=== PATIENT | female | born 1990 | race Caucasian/White ===

== ENCOUNTER 2018-10-30 05:26 | Emergency (ER) | payer OTHER ==
[2018-10-30 05:47] VITALS: BMI 25.2
[2018-10-30] MEDS ORDERED: SODIUM CHLORIDE 0.9% 500 ML INFUS.BAG IV ONE (06:03)
[2018-10-30] MEDS ORDERED: ACETAMINOPHEN 1000 MG/100 ML VIAL (NON FORMULARY) IVPB ONE (06:03)
--- NOTE | 2018-10-30 06:09 | PDOC ---
Attending Attestation - Resident Resident Name: Corbin Arceo - ED Attending Attestation I have performed the following: I have examined & evaluated the patient, The case was reviewed & discussed with the resident, I agree w/resident's findings & plan - HPI HPI: 10/30/18 06:07 Pt comes with RUQ pain and she has 2 large stones in her GB on bedside sono. We are not appreciating thick GB wall and she will be sent for an official sono to measure CBD and check out the pancreas, as she has epigastric pain. - Physicial Exam PE: 10/30/18 06:08 Agree with resident exam. - Medical Decision Making 10/30/18 06:08 Pt will have preop labs drawn and she will be hydrated and given tylenol IVPB. 10/30/18 06:46 Lipase is normal. 10/30/18 06:59 INR normal CBC and chem pending official sono pedning. Pt will be signed out to the day ER team.
--- NOTE | 2018-10-30 06:19 | PDOC ---
History of Present Illness - General Chief Complaint: Pain Stated Complaint: ABD PAIN Time Seen by Provider: 10/30/18 05:46 History Source: Patient Exam Limitations: No Limitations - History of Present Illness Initial Comments: 10/30/18 06:13 Thelma Goel is a 28F presenting with acute onset epigastric abdominal pain. Says she woke up today with a sharp epigastric pain, non-radiating, without fever, N/V, C/D, dizziness, weakness, chest pain, SOB. Says she ate some platanos and chicken, partner also ate and is not affected. Never had this pain before, denies any abdominal surgeries, takes OCP and denies , denies cardiac history. Denies tobacco, alcohol, drug use. Otherwise healthy, no home medications other than OCP. NKDA. Past History - Past Medical History Allergies/Adverse Reactions: Allergies Allergy/AdvReac Type Severity Reaction Status Date / Time No Known Allergies Allergy Verified 10/30/18 05:47 Home Medications: Ambulatory Orders NK [No Known Home Medication] 10/30/18 COPD: No - Suicide/Smoking/Psychosocial Hx Smoking History: Never smoked Have you smoked in the past 12 months: No Information on smoking cessation initiated: No Hx Alcohol Use: No Drug/Substance Use Hx: No Review of Systems - Review of Systems Able to Perform ROS?: Yes Is the patient limited [place] proficient: No Constitutional: No: Symptoms Reported HEENTM: No: Symptoms Reported Respiratory: No: Symptoms reported Cardiac (ROS): No: Symptoms Reported ABD/GI: Yes: Other (sharp abdominal pain). No: Constipated, Diarrhea, Nausea, Poor Appetite, Poor Fluid Intake, Vomiting : No: Symptoms Reported Musculoskeletal: No: Symptoms Reported Integumentary: No: Symptoms Reported Neurological: No: Symptoms reported Endocrine: No: Symptoms Reported Hematologic/Lymphatic: No: Symptoms Reported All Other Systems: Reviewed and Negative *Physical Exam - Vital Signs Last Vital Signs Temp Pulse Resp BP Pulse Ox 97.9 F 100 H 22 H 128/78 100 10/30/18 05:42 10/30/18 05:42 10/30/18 05:42 10/30/18 05:42 10/30/18 05:42 - Physical Exam General Appearance: Yes: Nourished, Appropriately Dressed, Mild Distress HEENT: positive: EOMI, GREG[place], Normal Voice, Symmetrical, Pharynx Normal. negative: Scleral Icterus (R), Scleral Icterus (L) Neck: positive: Trachea midline, Normal Thyroid, Supple. negative: Tender, Lymphadenopathy (R), Lymphadenopathy (L) Respiratory/Chest: positive: Lungs Clear, Normal Breath Sounds, Respiratory Distress. negative: Crackles, Rales, Rhonchi Cardiovascular: positive: Regular Rhythm, Regular Rate. negative: Murmur Gastrointestinal/Abdominal: positive: Normal Bowel Sounds, Tender (epigastric), Flat, Soft. negative: Organomegaly Musculoskeletal: positive: Normal Inspection. negative: CVA Tenderness Extremity: positive: Normal Capillary Refill, Normal Inspection, Normal Range of Motion. negative: Tender Integumentary: positive: Normal Color, Dry, Warm. negative: Cold Neurologic: positive: Fully Oriented, Normal Mood/Affect, Normal Response ED Treatment Course - LABORATORY CBC & Chemistry Diagram: 10/30/18 06:00 10/30/18 06:00 Medical Decision Making - Medical Decision Making 10/30/18 06:13 Thelma Goel is a 28F presenting with acute onset epigastric abdominal pain. Patient presents with cute onset first time epigastric pain with no prior history. Presentation concerning for pancreatitis vs. gallbladder pathology vs. appendicitis vs. NM vs. AAA vs. gastritis. Will evaluate via: CMP CBC ECG CXR Lipase Upreg Coags RUQ US Bedside US shows no enlarged ant. gallblader wall or CBD dilation, but several non-obstructing stones noted in GB. Giving 1L NS and Ofirmev for pain. Will need surgery consult and will likely be discharged with biliac colic and f/ u with a surgeon. 10/30/18 07:43 Patient re-assessed, pain is under control. Signed out to Dr. Holland. *DC/Admit/Observation/Transfer Diagnosis at time of Disposition: Epigastric pain - Referrals Referrals: Arsenio Jin MD [Primary Care Provider] - - Patient Instructions - Post Discharge Activity
[2018-10-30 06:32] LABS: MEAN CELL VOLUME 87.9 fl (80-96)
[2018-10-30 06:54] LABS: INR 0.97 (0.83-1.09); PROTHROMBIN TIME (PATIENT) 11.5 SEC (9.7-13.0)
[2018-10-30 06:57] LABS: HEMOGLOBIN 14.8 GM/dL (10.7-15.3); MCH 30.2 pg (25.7-33.7); MCHC 34.4 g/dl (32.0-36.0); RBC 4.89 M/mm3 (3.60-5.2); RDW 13.4 % (11.6-15.6)
[2018-10-30 06:59] LABS: ALBUMIN 4.2 g/dl (3.4-5.0); BILIRUBIN,TOTAL 0.5 mg/dL (0.2-1); BLOOD UREA NITROGEN 11.2 mg/dL (7-18); CALCIUM 9.4 mg/dL (8.5-10.1); CREATININE 0.9 mg/dL (0.55-1.3); POTASSIUM 3.7 mmol/L (3.5-5.1); TOT PROT 8.7 g/dl (6.4-8.2)
[2018-10-30 08:02] LABS: ANISOCYTOSIS 0; MACROCYTOSIS 0
[2018-10-30 08:03] LABS: PLATELET ESTIMATE NO CLOTTING DETECTED
--- NOTE | 2018-10-30 08:15 | PDOC ---
*Physical Exam - Vital Signs Last Vital Signs Temp Pulse Resp BP Pulse Ox 97.9 F 92 H 18 100/64 100 10/30/18 05:42 10/30/18 07:12 10/30/18 07:12 10/30/18 07:12 10/30/18 07:12 - Physical Exam General Appearance: Yes: Nourished, Appropriately Dressed HEENT: positive: EOMI, Symmetrical. negative: Nasal Congestion, Rhinorrhea Neck: positive: Supple. negative: Lymphadenopathy (R), Lymphadenopathy (L) Respiratory/Chest: positive: Lungs Clear, Normal Breath Sounds. negative: Accessory Muscle Use Cardiovascular: positive: Regular Rhythm, Regular Rate, S1, S2 Gastrointestinal/Abdominal: positive: Normal Bowel Sounds, Soft, Tenderness ( mild epigastric tenderness to palpation ). negative: Guarding, Rebound Extremity: positive: Normal Capillary Refill Integumentary: positive: Normal Color Neurologic: positive: Fully Oriented, Alert, Motor Strength 5/5 ED Treatment Course - LABORATORY CBC & Chemistry Diagram: 10/30/18 06:00 10/30/18 06:00 - ADDITIONAL ORDERS Additional order review: Laboratory Results 10/30/18 10/30/18 10/30/18 06:00 06:00 06:00 PT with INR 11.50 INR 0.97 Sodium 141 Potassium 3.7 Chloride 104 Carbon Dioxide 25 Anion Gap 12 BUN 11.2 Creatinine 0.9 Est GFR (CKD-EPI)AfAm 100.14 Est GFR (CKD-EPI)NonAf 86.41 Random Glucose 99 Calcium 9.4 Total Bilirubin 0.5 AST 105 H ALT 197 H Alkaline Phosphatase 68 Total Protein 8.7 H Albumin 4.2 Lipase 171 10/30/18 06:00 RBC 4.89 MCV 87.9 MCHC 34.4 RDW 13.4 MPV No Result Required. Neutrophils % No Result Required. Lymphocytes % No Result Required. - Medications Given in the ED: ED Medications Discontinued Medications Generic Name Dose Route Start Last Admin Trade Name Amelia PRN Reason Stop Dose Admin Acetaminophen 1,000 mg 10/30/18 06:03 10/30/18 06:35 Ofirmev Injection - IVPB 10/30/18 06:04 1,000 mg ONCE ONE Administration Sodium Chloride 1,000 ml 10/30/18 06:03 10/30/18 06:34 Normal Saline - IV 10/30/18 06:04 1,000 ml ONCE ONE Administration Medical Decision Making - Medical Decision Making 10/30/18 08:12 Patient signed out by Dr. Arceo. 28 y/o/f here for epigastric pain since last night. On bedside ultrasound she was found to have non-obstructing gallstones. CBC positive for elevated WBC of 12, CMP positive for elevated AST/ALT of 105/197. Waiting for RUQ U/S. Will consult surgery and follow up as per their suggestions. Patient's states that she may have had the pain due to food the family ate last night. He states his stomach a upset too and so is his mother's, who had food with them last night as well. Patient states pain is much better now. Just mild epigastric discomfort. 10/30/18 09:00 U/S negative for acute cholecystitis. No evidence for intra or extrahepatic biliary duct dilation. Patient feeling better, pain under control. Will D/C patient with proper follow up. *DC/Admit/Observation/Transfer Diagnosis at time of Disposition: Epigastric pain, Biliary colic, Elevated LFTs Gallstones without obstruction of gallbladder Qualifiers: Cholelithiasis location: gallbladder - Discharge Dispostion Disposition: HOME Condition at time of disposition: Good Decision to Admit order: No - Referrals Referrals: Arsenio Jin MD [Primary Care Provider] - Lavell Lovett MD [Staff Physician] - Oleg Shay MD [Staff Physician] - - Patient Instructions Printed Discharge Instructions: DI for Gallstones Additional Instructions: If you have worsening abdominal pain, nausea, vomiting, fever, or other concerns please return to the ED. Follow up with your primary care doctor within this week, your liver enzymes were slightly elevated today. You have been given referrals for general surgery, please follow up with them regarding your gallstones. - Post Discharge Activity
[2018-10-30 09:25] VITALS: BP 109/70; PULSE 85; TEMP 98.4
== END 2018-10-30 09:25 | disposition home or self-care (01) ==
LOC: JER 05:26
PROC: 3E033NZ Introduction of Analgesics, Hypnotics, Sedatives into Peripheral Vein, Percutaneous Approach (ICD-10-PCS; principal; 2018-10-30)
DX: K80.70 Calculus of gallbladder and bile duct without cholecystitis without obstruction (principal); R94.5 Abnormal results of liver function studies
CPT/HCPCS: 36415; 76705-TC; 80053; 83690; 84703; 85025; 85610; 86850; 86900; 86901; 96374; 99283-25; J0131